=== PATIENT | male | born 1950 | race Native Hawaiian/Other Pacific Islander ===

== ENCOUNTER 2019-10-18 18:15 | Emergency (ER) | payer OTHER ==
[~2019-10-18] VITALS: Ht 180.3 cm; Wt 77.1 kg
[2019-10-18 19:51] VITALS: BP 167/87; TEMP 98.2
== END 2019-10-18 19:57 | disposition home or self-care (01) ==
LOC: ED 18:15
DX: S20.221A Contusion of right back wall of thorax, initial encounter (principal); W31.89XA Contact with other specified machinery, initial encounter; Y92.89 Other specified places as the place of occurrence of the external cause
CPT/HCPCS: 36415; 99283